=== PATIENT | female | born 1960 | race Caucasian/White ===

== ENCOUNTER 2023-06-07 08:52 | Outpatient (CLI) | payer BC, OTHER, SELFPAY ==
--- NOTE | 2023-06-07 09:00 | CRLHL7_ITS ---
For Patients: As a result of the Century Cures Act, medical imaging exams and procedure reports are released immediately into your electronic medical record. You may view this report before your referring provider. If you have questions, please contact your health care provider. Indication: Low back pain status post fusion Technique: Noncontrast axial CT of the lumbar spine with coronal and sagittal reformats. Comparison: CT lumbar spine 01/05/2023 Findings: Interval changes of posterior instrumented spinal fusion from T12-L4 with transpedicular screws and rods, spanning the L2 superior endplate compression fracture. The L2 vertebral body demonstrates interval height loss since the prior exam, estimated at approximately 50 percent, with minor (2 mm) cortical retropulsion. Surgical hardware appears well seated. No new acute osseous abnormality identified over the interval. Anterolateral bridging syndesmophytes at T11-L1. Spinal canal appears widely patent. No evidence of significant neural foraminal or spinal canal stenosis. Prevertebral and paraspinal soft tissues unremarkable. Included lung bases are clear. Cholecystectomy changes. Unremarkable SI joints. Impression: 1. Interval changes of posterior instrumented spinal fusion from T12-L4. Hardware appears well seated. 2. Progressive height loss of the L2 superior endplate compression fracture, now with minor (2 mm) cortical retropulsion. 3. No significant neural foraminal or spinal canal stenosis. Please note that all CT scans at this facility use dose modulation, iterative reconstruction, and/or weight-based dosing when appropriate to reduce radiation dose to as low as reasonably achievable. Dictated by Kisha Winslow MD @ 06/09/2023 9:50:09 AM (Electronically Signed)
== END 2023-06-07 08:53 | disposition home or self-care (01) ==
PROVIDERS: PCP Family Medicine; Visit Provider Orthopaedic Surgery
DX: M54.50 Low back pain, unspecified (principal); S32.010A Wedge compression fracture of first lumbar vertebra, initial encounter for closed fracture
CPT/HCPCS: 72131

== ENCOUNTER 2024-10-21 14:00 | Outpatient (RCR) | payer BC, SELFPAY | END 2025-01-15 13:38 | disposition home or self-care (01) | PROVIDERS: PCP Family Medicine; Visit Provider Family Medicine | DX: M25.511 Pain in right shoulder (principal); Z51.89 Encounter for other specified aftercare | CPT/HCPCS: 97110; 97140; 97161; 97535 ==

== ENCOUNTER 2025-06-18 16:00 | Outpatient (RCR) | payer BC, SELFPAY | END 2025-10-08 16:51 | disposition home or self-care (01) | PROVIDERS: PCP Family Medicine; Visit Provider Orthopaedic Surgery | DX: Z48.89 Encounter for other specified surgical aftercare (principal); S46.011D Strain of muscle(s) and tendon(s) of the rotator cuff of right shoulder, subsequent encounter; M75.21 Bicipital tendinitis, right shoulder; M75.41 Impingement syndrome of right shoulder; M94.211 Chondromalacia, right shoulder; Z51.89 Encounter for other specified aftercare | CPT/HCPCS: 97110; 97140; 97162 ==